=== PATIENT | male | born 1935 | race Caucasian/White ===

== ENCOUNTER 2022-04-15 09:30 | Emergency (ER) | payer MEDICARE, OTHER, SELFPAY ==
--- NOTE | ~2022-04-15 | CT_ITS ---
EXAMINATION: CT ABDOMEN AND PELVIS WITHOUT CONTRAST CLINICAL INFORMATION: Enlarged prostate gland, urinary retention. COMPARISON: None TECHNIQUE: Multidetector volumetric imaging was performed from the superior aspect of the liver through the pubic symphysis. Sagittal and coronal reformatted images were obtained on the technologist's workstation. Lack of intravenous and oral contrast limits visceral evaluation. This CT examination was performed using dose optimization techniques as appropriate, variously including the following: *Automated exposure control *Adjustment of mA and/or kV according to patient size (this includes techniques or standardized protocols for targeted exams where dose is matched to indication/reason for exam; i.e. extremities or head) *Use of iterative reconstruction technique DLP: 552 mGy-cm FINDINGS: LUNG BASES: The visualized lung bases are unremarkable. LIVER, GALLBLADDER, AND BILIARY TREE: No hepatic abnormality. Multiple calcified gallstones and sludge without surrounding abnormality. PANCREAS: Fluid attenuation cyst posteriorly in the tail measuring 2.0 cm (image 20, series 3). No significant pancreatic ductal dilatation. No peripancreatic abnormality. SPLEEN: Unremarkable. ADRENAL GLANDS: Unremarkable. KIDNEYS AND URETERS: Left kidney noncalcified fluid attenuation cyst in the lower pole measures 1.3 cm (image 55, series 5) not requiring follow-up. The right kidney is unremarkable. No hydroureteronephrosis. BLADDER: Mild to moderately distended. Moderate-sized diverticulum off of the anterior superior margin measuring 4.4 x 2.5 x 3.7 cm with mild mural thickening. Mild adjacent infiltrative changes are seen. GASTROINTESTINAL TRACT: The stomach, small bowel and appendix are unremarkable. The colon shows mild to moderate stool distally with moderate to large stool in the rectum without surrounding abnormality. Mild diverticulosis is seen without surrounding abnormality. ABDOMINAL WALL: Generalized anasarca. A large complex collection is seen at the level of the left gluteus medius muscle posterior to the left hip measuring approximately measuring approximately 14.7 x 9.1 x 5.2 cm (image 54, series 5; image 66, series 3). LYMPH NODES: No lymphadenopathy. VASCULAR: Mild to moderate atherosclerosis PELVIC VISCERA: Mild prostatomegaly. OSSEOUS STRUCTURES: Mild to moderate multilevel degenerative changes are seen in the thoracolumbar spine most pronounced at L4-L5 with mild grade 1 anterolisthesis. No acute or suspicious abnormality. Left hip hardware appears intact. Moderate right hip degenerative joint changes. CT/CT abdomen pelvis wo con IMPRESSION: 1. Mild to moderate distention of the urinary bladder with moderate size diverticulum. Mild associated mural thickening and adjacent infiltrative changes suggestive of acute infectious/inflammatory cystitis. Mild prostatomegaly. 2. Cholelithiasis without evidence for acute cholecystitis. 3. 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 This could represent a simple cyst. IPMN cannot be excluded. No associated abnormality. This can be monitored for change with a contrast-enhanced MRI and 3-6 months. Alternatively, a repeat CT scan could be performed in 3 months to assess for stability. 4. Moderate colonic stool and moderate to large rectal stool. Correlate with stool output. Mild colonic diverticulosis without evidence for acute diverticulitis. 5. Large complex collection in the left gluteus medias muscle posterior to the left hip. This is nonspecific. Considerations include hematoma or enlarge bursa. Left hip hardware appears intact. Correlate with patient history. 6. Generalized anasarca. Fleischner guidelines were followed.
[2022-04-15 09:56] VITALS: BP 148/84; PULSE 85; RESP 16; TEMP 36.9; O2SAT 98
[2022-04-15 10:00] VITALS: BP 138/78; BP 148/83; PULSE 88; PULSE 89; RESP 16; O2SAT 97; O2SAT 98; BMI 21.5
--- NOTE | 2022-04-15 10:04 | ED_ITS ---
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 Denis, NSTEMI, and hernia repair, presents to the emergency department with lower abdominal pain since 21:00 last night. Patient states that as of 21:00 last night he has had infrequent urination where he feels like he cannot start a stream with associated hematuria with clots. Eri ent states that he has not been able to empty his bladder fully. Patient states that he had a previous prostate surgery which had helped with his urinary retention approximately 4 months ago by a urologist at [facility]. Patient endorses compliance with all home medications. Patient denies any fever, chills, headache, vision changes, lightheadedness, dizziness, shortness of breath, chest pain, cough, wheezing, nausea, vomiting, back pain, flank pain, dysuria, abnormal penile discharge or any sick symptoms. 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 #30 caps 04/15/22 Allergies Allergy/AdvReac Type Severity Reaction Status Date / Time Benzoate Analogues Allergy Unknown UNKNOWN Unverified 05/13/20 17:07 [BENZOATE ANALOGUES] cefuroxime [CEFUROXIME] Allergy Unknown UNKNOWN Unverified 05/13/20 17:07 ciprofloxacin [CIPROFLOXACIN] Allergy Unknown UNKNOWN Unverified 05/13/20 17:07 Review of Systems Review of Systems Constitutional : No Weight loss, No Fever, No Chills, No Fatigue, No Malaise ENT/Mouth : No Hearing Loss, No Ear Pain, No Nasal Congestion, No Sinus Pain, No Hoarseness, No Sore Throat Eyes: No Eye Pain, No Swelling, No Redness, No Foreign Body, No Discharge, No Vision Changes Cardiovascular : No Chest Pain, No SOB, No Dyspnea on Exertion, No Orthopnea, No Edema, No Palpitations Respiratory : No Cough, No Sputum, No Wheezing, No Smoke Exposure, No Dyspnea Gastrointestinal : No Nausea, No Vomiting, No Diarrhea, No Constipation, +Lower Abdominal Pain Genitourinary : No Dysuria, No Urinary Frequency, + Hematuria, No Urinary Incontinence, No Urgency, No Flank Pain, +Urinary Flow Changes, + Hesitancy Musculoskeletal : No Joint pain, No Myalgias, No Joint Swelling Skin : No Skin Lesions, No Rash Neuro : No Weakness, No Numbness, No Paresthesias, No Loss of Consciousness, No Dizziness, No Headache Yes all other systems are reviewed and are negative [facility] Past Medical History Attestation statement: The following information was validated with the patient. Source: old records reviewed and nursing notes reviewed Social History Social History Alcohol intake: never Patient Tobacco Use Status: Never used Tobacco Advance Directives: No Advance Directives Information Provided: No Physical Exam ED Vital Signs: Vital Signs - 24 hr 04/15/22 09:56 04/15/22 10:00 04/15/22 14:33 Temperature 98.4 F 98.5 F Pulse Rate 85 89 62 Respiratory Rate 16 16 12 Blood Pressure 148/84 H 148/83 H 132/63 Pulse Oximetry 98 97 97 Oxygen Delivery Method Room Air Room Air Room Air BMI result Body Mass Index 21.5 Vital signs have been reviewed as normal and appeared to be correct. Blood pressure 148/84. Heart rate normal. Respiration rate normal. Temperature normal. Oxygen saturation normal. Appearance: Alert. Oriented X3. No acute distress. Head: Normal external exam. Normocephalic. Atraumatic. Eyes: PERRLA. EOMI. Conjunctiva and sclera normal. Eyelids normal. ENT: Pharynx normal. Uvula midline. Moist mucous membranes. No lesions/ulcerations or masses noted on the tongue. Normal voice. No trismus noted. No drooling noted. No muffled voice noted. Neck: Normal inspection. Neck supple. FROM. No Adenopathy. Thyroid Normal. No meningeal signs. No neck mass noted. CVS: Normal heart rate and rhythm. Heart sound normal. Pulses normal throughout. No murmurs/rales/gallops. Respiratory: No respiratory distress. Painless inspiration. Breath sounds normal. No wheezes/rales/rhonchi noted. No accessory muscle usage noted or decreased air movement noted. Abdomen: Soft, nondistended. Bowel sounds normal in all 4 quadrants. No organomegaly noted. No visible injury noted. +Pain on palpation of suprapubic area. Back: No CVA tenderness. Full range of motion noted. Nontender. No signs of trauma. Patient neuro intact bilaterally and distally on all 4 extremities. Patient's reflexes intact bilaterally and distally on all 4 extremities. No rashes/lesion/induration/fluctuance or signs of infection noted. Skin: Skin warm and dry. Normal skin color. Normal skin turgor. No ra shes/lesions/lacerations noted. Extremities: No lower extremity edema. Extremities exhibit normal range of motion and nontender. Neuro: Oriented x 3. No motor deficit. No sensory deficit. Reflexes normal. No focal neuro deficits noted. CN's II-XII intact bilaterally? Vascular: + radial pulses/+ 2 distal pedal pulses/+2 dorsalis pedis b/l. Normal cap refill. No cyanosis noted to upper extremity nails and lower extremity toes nails. Course Course Course Narrative: 10am - 87-year-old male with a past medical history of coronary artery bypass surgery, lymphoma of the left arm and prostate enlargement with recent surgicl procedure at [facility] approximately 4 months ago who is presents to the emergency department with lower abdominal pain since 21:00 last night with associated urinary hesitancy/hematuria with clots and unable to completely empty his bladder. Plan: Will obtain labs, CT scan of abdomen pelvis without IV contrast performed a bladder scan along with a UA and re-evaluate. Reevaluation(s) Reevaluation #1: - labs return patient with mild baseline anemia which is improved when compared to prior with an H&H of 11.1/34.6. BUN 26 which is chronic for the patient. Total protein 5.6. Albumin 3.1. UA revealed evidence of UTI therefore will treat for UTI. - there is a 2.0 cm pancreatic tail cyst that is nonspecific although they reported that they cannot rule out IPMN. Therefore he will need a repeat CT scan or MRI in 3-6 months. I discussed this with the patient and gave him a printout of his results. He also noted to have mild to moderate distention of the urinary bladder with moderate size diverticulum associated with mural thickening and adjacent infiltrative changes suggestive of acute infectious/inflammatory cystitis. Mild prostatomegaly noted. He is also noted to have some constipation. He also is noted to have diverticulosis without evidence of diverticulitis. Along with a large complex collection in the left gluteus medius muscle posterior to the left hip which is nonspecific. And generalized anararca. Otherwise additional chronic changes no acute processes other than what was listed above. - I discussed this case with Dr. Santoyo and Dr. Santoyo reported since the patient only had 2-300 mL in his bladder then we would keep the Bose catheter in for at least 7 days and Nancy Felisha take out the catheter themselves. - he also recommended increasing the patient's alpha-beverley if he is not already on he recommended starting the patient on 5mg of Terazosin 5mg. If already on Tamsulosin switch to Terazosin 10 mg. And he can follow-up in the urology office in 6-8 weeks for further evaluation treatment. - he should also follow up with his primary care provider or technician inventory specialist for further evaluation treatment for the possible pancreatic cyst. Patient understands agrees with this plan. Time: 13:55 MDM - Abdominal Pain Medical Records Attestation: I reviewed the patient's medical records. Lab Data Attestation: I reviewed the patient's lab results. Result diagrams: 04/15/22 13:15 04/15/22 13:15 Labs: Lab Results 04/15/22 04/15/22 04/15/22 Range/Units 12:45 13:15 13:15 WBC 7.5 (4.8-10.8) X10*3/uL RBC 3.65 L (4.60-5.80) X10*6/uL Hgb 11.1 L (14.0-18.0) g/dl Hct 34.6 L (42.0-52.0) % MCV 94.8 (80.0-98.0) fL MCH 30.4 (27.0-33.0) pg MCHC 32.1 (31.0-36.0) g/dl RDW 14.9 (11.0-16.0) % Plt Count 197 (160-400) X10*3/uL MPV 9.6 (9.4-12.4) fL Immature Gran % (Auto) 0.3 (0.0-0.4) % Neut % (Auto) 82.3 H (45-73) % Lymph % (Auto) 7.1 L (20-40) % [place] % (Auto) 6.2 (2-11) % Eos % (Auto) 3.6 (0-4) % Baso % (Auto) 0.5 (0-2) % Lymph # (Auto) 0.5 L (1.2-4.9) X10*3/uL [place] # (Auto) 0.5 (0.1-1.2) X10*3/uL Eos # (Auto) 0.3 (0.0-0.4) X10*3/uL Baso # (Auto) 0.0 (0.0-0.2) X10*3/uL Abs Immat Gran (auto) 0.02 (0.00-0.03) X10*3/uL Absolute Neuts (auto) 6.2 (2.0-8.3) x10*3/uL Absolute Nucleated RBC 0.000 (0.0-0.012) X10*3/uL Nucleated RBC % (auto) 0.0 (0.0-0.2) /100WBC PT 12.5 (10.0-13.1) SEC INR 1.1 (0.9-1.1) Sodium (135-145) mmol/L Potassium (3.3-5.1) mmol/L Chloride (96-108) mmol/L Carbon Dioxide (22-29) mmol/L Anion Gap (12-20) BUN (9-16) mg/dL Creatinine (0.5-1.4) mg/dL Estim Creat Clear Calc Estimated GFR Random Glucose (60-115) mg/dL Calcium (8.4-10.2) mg/dL Magnesium (1.6-2.6) mg/dL Total Bilirubin (0.0-1.0) mg/dL AST (5-37) U/L ALT (0-40) U/L Alkaline Phosphatase (39-117) U/L Total Protein (6.5-8.0) g/dL Albumin (3.5-5.0) g/dL Urine Color RED Urine Appearance Cloudy Urine pH 7.0 (5.0-8.0) Ur Specific [place] 1.015 (1.005-1.025) Urine Protein 300 (3+) H (Neg-Trace) mg/dL Urine Glucose (UA) Negative (Negative) mg/dL Urine Ketones Negative (Negative) mg/dL Urine Blood Large (3+) H (Negative) Urine Nitrite Negative (Negative) Ur Leukocyte Esterase Trace H (Negative) Urine RBC >20 H (0-2) /HPF Urine WBC 0-5 (0-5) /HPF Ur Squamous Epith Cells 0-2 (0-2) /HPF Urine Bacteria None Seen (None Seen) Hyaline Casts 0-2 (0-2) /LPF 04/15/22 Range/Units 13:15 WBC (4.8-10.8) X10*3/uL RBC (4.60-5.80) X10*6/uL Hgb (14.0-18.0) g/dl Hct (42.0-52.0) % MCV (80.0-98.0) fL MCH (27.0-33.0) pg MCHC (31.0-36.0) g/dl RDW (11.0-16.0) % Plt Count (160-400) X10*3/uL MPV (9.4-12.4) fL Immature Gran % (Auto) (0.0-0.4) % Neut % (Auto) (45-73) % Lymph % (Auto) (20-40) % [place] % (Auto) (2-11) % Eos % (Auto) (0-4) % Baso % (Auto) (0-2) % Lymph # (Auto) (1.2-4.9) X10*3/uL [place] # (Auto) (0.1-1.2) X10*3/uL Eos # (Auto) (0.0-0.4) X10*3/uL Baso # (Auto) (0.0-0.2) X10*3/uL Abs Immat Gran (auto) (0.00-0.03) X10*3/uL Absolute Neuts (auto) (2.0-8.3) x10*3/uL Absolute Nucleated RBC (0.0-0.012) X10*3/uL Nucleated RBC % (auto) (0.0-0.2) /100WBC PT (10.0-13.1) SEC INR (0.9-1.1) Sodium 142 (135-145) mmol/L Potassium 4.3 (3.3-5.1) mmol/L Chloride 105 (96-108) mmol/L Carbon Dioxide 27 (22-29) mmol/L Anion Gap 14 (12-20) BUN 26 H (9-16) mg/dL Creatinine 0.87 (0.5-1.4) mg/dL Estim Creat Clear Calc 58.6 Estimated GFR > 60 Random Glucose 110 (60-115) mg/dL Calcium 8.7 D (8.4-10.2) mg/dL Magnesium 1.7 (1.6-2.6) mg/dL Total Bilirubin 0.9 (0.0-1.0) mg/dL AST 9 (5-37) U/L ALT < 6 (0-40) U/L Alkaline Phosphatase 85 (39-117) U/L Total Protein 5.6 L (6.5-8.0) g/dL Albumin 3.1 L (3.5-5.0) g/dL Urine Color Urine Appearance Urine pH (5.0-8.0) Ur Specific [place] (1.005-1.025) Urine Protein (Neg-Trace) mg/dL Urine Glucose (UA) (Negative) mg/dL Urine Ketones (Negative) mg/dL Urine Blood (Negative) Urine Nitrite (Negative) Ur Leukocyte Esterase (Negative) Urine RBC (0-2) /HPF Urine WBC (0-5) /HPF Ur Squamous Epith Cells (0-2) /HPF Urine Bacteria (None Seen) Hyaline Casts (0-2) /LPF Imaging Data CT scan abdomen pelvis without IV contrast: Attestation: I personally reviewed and interpreted this imaging study as follows: Radiologist's impression: FINDINGS: LUNG BASES: The visualized lung bases are unremarkable.? LIVER, GALLBLADDER, AND BILIARY TREE: No hepatic abnormality. Multiple calcified gallstones and sludge without surrounding abnormality. PANCREAS: Fluid attenuation cyst posteriorly in the tail measuring 2.0 cm (image 20, series 3). No significant pancreatic ductal dilatation. No peripancreatic abnormality.? SPLEEN: Unremarkable.? ADRENAL GLANDS: Unremarkable.? KIDNEYS AND URETERS: Left kidney noncalcified fluid attenuation cyst in the lower pole measures 1.3 cm (image 55, series 5) not requiring follow-up. The right kidney is unremarkable. No hydroureteronephrosis. BLADDER: Mild to moderately distended. Moderate-sized diverticulum off of the anterior superior margin measuring 4.4 x 2.5 x 3.7 cm with mild mural thickening. Mild adjacent infiltrative changes are seen. GASTROINTESTINAL TRACT: The stomach, small bowel and appendix are unremarkable. The colon shows mild to moderate stool distally with moderate to large stool in the rectum without surrounding abnormality. Mild diverticulosis is seen without surrounding abnormality. ABDOMINAL WALL: Generalized anasarca. A large complex collection is seen at the level of the left gluteus medius muscle posterior to the left hip measuring approximately measuring approximately 14.7 x 9.1 x 5.2 cm (image 54, series 5; image 66, series 3). LYMPH NODES: No lymphadenopathy. VASCULAR: Mild to moderate atherosclerosis PELVIC VISCERA: Mild prostatomegaly.? OSSEOUS STRUCTURES: Mild to moderate multilevel degenerative changes are seen in the thoracolumbar spine most pronounced at L4-L5 with mild grade 1 anterolisthesis. No acute or suspicious abnormality. Left hip hardware appears intact. Moderate right hip degenerative joint changes. CT/CT abdomen pelvis wo con IMPRESSION: 1. Mild to moderate distention of the urinary bladder with moderate size diverticulum. Mild associated mural thickening and adjacent infiltrative changes suggestive of acute infectious/inflammatory cystitis. Mild prostatomegaly. 2. Cholelithiasis without evidence for acute cholecystitis. 3. 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 This could represent a simple cyst. IPMN cannot be excluded. No associated abnormality. This can be monitored for change with a contrast-enhanced MRI and 3-6 months. Alternatively, a repeat CT scan could be performed in 3 months to assess for stability. 4. Moderate colonic stool and moderate to large rectal stool. Correlate with stool output. Mild colonic diverticulosis without evidence for acute diverticulitis. 5. Large complex collection in the left gluteus medias muscle posterior to the left hip. This is nonspecific. Considerations include hematoma or enlarge bursa. Left hip hardware appears intact. Correlate with patient history. 6. Generalized anasarca. ? Fleischner guidelines were followed. Critical Care Time Critical Care Time Critical Care Time: Yes Total Critical Care Time: 60 Attestation: I personally attest to this time spent taking care of the patient Discharge Plan Discharge Clinical Impression: Acute retention of urine, UTI (urinary tract infection), Enlarged prostate, Abnormal CT of the abdomen, Pancreas cyst, Constipation, Anasarca Patient Disposition: er [facility] Transfer Details: [facility] Instructions: Urinary Retention in Men (ED), Urinary Tract Infection in Men (ED), Bose Catheter Placement and Care (ED) Additional Instructions: On your CT scan of your abdomen and pelvis that revealed a possible pancreatic cyst although they cannot rule out any cancerous lesions therefore you should have a repeat CT scan with IV contrast within 3-6 months or an MRI. You should follow-up with her primary care provider regarding this or a technician inventory specialist. I gave you an number so you can call to make a follow-up appointment with a technician inventory specialist. You should have your Bose catheter removed in 7 days while at [facility] I discussed this with Dr. Santoyo the urologist and he wants to see you in his office within 6-8 weeks please make a follow-up appointment with him the number is also listed below. She discontinue 10 tamsulosin and start Terazosin Return if any new or worsening symptoms. Prescriptions: New sulfamethoxazole-trimethoprim [Bactrim DS] 800-160 mg tablet 1 tab PO BID 3 Days Qty: 6 0RF terazosin 10 mg capsule 10 mg PO DAILY Qty: 30 0RF Referrals: Kirill Santoyo MD [Physician] - 2 weeks (Call to make a follow-up ap pointment within the next 6-8 weeks) Lucina Garcia MD [Physician] - 2 weeks (Pancreatic cyst abnormal CT) Zack Mello MD [Primary Care Provider] - 5 days
--- NOTE | 2022-04-15 10:45 | PC.NURSE ---
patient a/o x4 . pearrla . lungs clear . heart beat irregular patient history of affib . beats at 72-74 . skin pink warm and dry . abdomen soft . tender to palpation postive bowel sounds . patient reports last good urination where he feels he was bale to fully empty bladder was last night at 9 pm . today he presents at Ed with dysuria with ssmall amounts of urine produced with small amounts of clots . reports 3/10 pain level . patient reports history of prostate surgery at [facility] 4-5months ago . patient has a brace on left leg r/t recent hip surgery . skin is pink warm and dry . lower leg around shins is darker . patient is aware of plan of care .
[2022-04-15] MEDS: oxyCODONE HCl Immed Release 5 MG TABLET PO (12:24)
[2022-04-15] MEDS: Lidocaine HCl 2 % Urojet 10 ML JEL.PF.APP TOPICAL (12:26)
--- NOTE | 2022-04-15 13:05 | PC.NURSE ---
Catheter placed as ordered . patient tolerated well . patients urine hematuria , no evidence of clots noted . out put at time 250 ml . provider aware . patient medicated for pain . patient aware of plan of care . ua sent to lab .
[2022-04-15 13:13] LABS: Appearance Urine Cloudy; Color Urine RED; Glucose Urine UA Negative (Negative); Leukocyte Esterase Urine Trace (Negative); Nitrite Urine Negative (Negative); Specific Gravity - Urine 1.015 (1.005-1.025); Urine Blood Large (3+) (Negative); Urine Ketones Negative (Negative); Urine Protein 300 (3+) mg/dL (Neg-Trace)
[2022-04-15 13:16] LABS: RBC Urine >20 /HPF (0-2); Squamous Epithelial Cell Urine 0-2 /HPF (0-2); WBC Urine 0-5 /HPF (0-5)
[2022-04-15 13:17] LABS: Bacteria Urine None Seen (None Seen); Hyaline Casts Urine 0-2 /LPF (0-2)
[2022-04-15 13:21] LABS: MANUAL DIFF FLAG NO
[2022-04-15 13:23] LABS: Basophils Percent Auto 0.5 % (0-2); Eosinophils Absolute Auto 0.3 X10*3/uL (0.0-0.4); Eosinophils Percent Auto 3.6 % (0-4); Hematocrit 34.6 % (42.0-52.0); Hemoglobin 11.1 g/dl (14.0-18.0); Imm Gran Abs Auto 0.02 X10*3/uL (0.00-0.03); Imm Gran Pct Auto 0.3 % (0.0-0.4); Lymphocytes Absolute Auto 0.5 X10*3/uL (1.2-4.9); Lymphocytes Percent Auto 7.1 % (20-40); Mean Corpuscular HGB Conc 32.1 g/dl (31.0-36.0); Mean Corpuscular Hemoglobin 30.4 pg (27.0-33.0); Mean Corpuscular Volume 94.8 fL (80.0-98.0); Mean Platelet Volume 9.6 fL (9.4-12.4); Monocytes Absolute Auto 0.5 X10*3/uL (0.1-1.2); Monocytes Percent Auto 6.2 % (2-11); Neutrophils Absolute Auto 6.2 x10*3/uL (2.0-8.3); Neutrophils Percent Auto 82.3 % (45-73); Platelet Count 197 X10*3/uL (160-400); Red Blood Count 3.65 X10*6/uL (4.60-5.80); Red Cell Distribution Width 14.9 % (11.0-16.0); White Blood Count 7.5 X10*3/uL (4.8-10.8)
[2022-04-15 13:32] LABS: INTERNATIONAL NORM RATIO 1.1 (0.9-1.1); Prothrombin Time 12.5 SEC (10.0-13.1)
[2022-04-15 13:51] LABS: Alanine Aminotransferase < 6 U/L (0-40); Albumin Level 3.1 g/dL (3.5-5.0); Alkaline Phosphatase 85 U/L (39-117); Anion Gap 14 (12-20); Aspartate Amino Transferase 9 U/L (5-37); Bilirubin Total 0.9 mg/dL (0.0-1.0); Blood Urea Nitrogen 26 mg/dL (9-16); Calcium 8.7 mg/dL (8.4-10.2); Carbon Dioxide 27 mmol/L (22-29); Chloride 105 mmol/L (96-108); Creatinine Clr Calc Pharmacy 58.6; Estimated Glomerular Filt Rate > 60; Glucose Random 110 mg/dL (60-115); Magnesium 1.7 mg/dL (1.6-2.6); Potassium 4.3 mmol/L (3.3-5.1); Sodium 142 mmol/L (135-145); Total Protein 5.6 g/dL (6.5-8.0)
[2022-04-15 14:33] VITALS: BP 132/63; PULSE 62; RESP 12; TEMP 36.9; O2SAT 97
--- NOTE | 2022-04-15 16:18 | PC.NURSE ---
[place] [address] ml of catheter as ordered by provider , return of fluid started out as red and progressed to light pink . patient tolerated well . provider aware of outcome . catheter bag changed . patient aware of plan of care .
[2022-04-15 16:52] VITALS: BP 166/70; PULSE 62; RESP 16; TEMP 36.7; O2SAT 96
--- NOTE | 2022-04-15 16:58 | PC.NURSE ---
Call was placed to [facility] to send the pt back to [facility] at [phone]. They told me they will send next BLS truck to facility to send pt home
--- NOTE | 2022-04-15 17:13 | PC.NURSE ---
[facility] has arrived to take pt back to [facility] at 1710
--- NOTE | 2022-04-15 17:15 | PC.NURSE ---
rn report given to [facility], pt to be transferred to [facility].
== END 2022-04-15 17:26 | disposition skilled nursing facility (03) ==
PROVIDERS: Physician Assistant Medical; Emergency Provider Emergency Medicine; PCP Family Medicine
DX: N40.1 Benign prostatic hyperplasia with lower urinary tract symptoms (principal); R33.8 Other retention of urine; N39.0 Urinary tract infection, site not specified; K59.00 Constipation, unspecified; R60.1 Generalized edema; K86.2 Cyst of pancreas; E11.9 Type 2 diabetes mellitus without complications; I48.91 Unspecified atrial fibrillation; Z79.01 Long term (current) use of anticoagulants
CPT/HCPCS: 36415; 51702; 51798; 74176; 80053; 81001; 83735; 85025; 85610; 99285

== ENCOUNTER 2022-05-29 07:30 | Outpatient (REF) | payer MEDICARE, OTHER, SELFPAY | END 2022-05-29 07:31 | disposition home or self-care (01) | LOC: HO.MMNH1L 07:30 | PROVIDERS: Visit Provider Family Medicine | DX: Z13.89 Encounter for screening for other disorder (principal) ==

== ENCOUNTER 2023-06-11 06:40 | Outpatient (REF) | payer MEDICARE, SELFPAY ==
[2023-06-11 06:41] LABS: MANUAL DIFF FLAG NO
[2023-06-11 07:19] LABS: Basophils Percent Auto 0.8 % (0-2); Eosinophils Absolute Auto 0.5 X10*3/uL (0.0-0.4); Eosinophils Percent Auto 8.9 % (0-4); Hematocrit 28.9 % (42.0-52.0); Hemoglobin 9.2 g/dl (14.0-18.0); Imm Gran Abs Auto 0.02 X10*3/uL (0.00-0.03); Imm Gran Pct Auto 0.4 % (0.0-0.4); Lymphocytes Absolute Auto 0.9 X10*3/uL (1.2-4.9); Lymphocytes Percent Auto 17.8 % (20-40); Mean Corpuscular HGB Conc 31.8 g/dl (31.0-36.0); Mean Corpuscular Hemoglobin 30.4 pg (27.0-33.0); Mean Corpuscular Volume 95.4 fL (80.0-98.0); Monocytes Absolute Auto 0.5 X10*3/uL (0.1-1.2); Monocytes Percent Auto 10.5 % (2-11); Neutrophils Absolute Auto 3.1 x10*3/uL (2.0-8.3); Neutrophils Percent Auto 61.6 % (45-73); Platelet Count 236 X10*3/uL (160-400); Red Blood Count 3.03 X10*6/uL (4.60-5.80); Red Cell Distribution Width 14.9 % (11.0-16.0); White Blood Count 5.1 X10*3/uL (4.8-10.8)
[2023-06-11 08:14] LABS: Anion Gap 19 (12-20); Calcium 9.1 mg/dL (8.4-10.2); Carbon Dioxide 26 mmol/L (22-29); Chloride 99 mmol/L (96-108); Estimated Glomerular Filt Rate 36; Glucose Random 107 mg/dL (60-115); Potassium 3.4 mmol/L (3.3-5.1); Sodium 141 mmol/L (135-145)
[2023-06-11 08:30] LABS: Blood Urea Nitrogen 54 mg/dL (9-16)
== END 2023-06-11 06:41 | disposition home or self-care (01) ==
LOC: HO.MMNH1L 06:40
PROVIDERS: Visit Provider Family Medicine
DX: M86.172 Other acute osteomyelitis, left ankle and foot (principal); L08.9 Local infection of the skin and subcutaneous tissue, unspecified
CPT/HCPCS: 36415; 80048; 85025